=== PATIENT | female | born 1965 | race Hispanic/Latino ===

== ENCOUNTER → 2023-10-08 | Outpatient (CLI) | payer OTHER | END | disposition home or self-care (01) | LOC: RAH 13:10 | PROVIDERS: ATTEND Internal Medicine | DX: M41.85 Other forms of scoliosis, thoracolumbar region (principal); M41.9 Scoliosis, unspecified; M77.31 Calcaneal spur, right foot; M43.8X4 Other specified deforming dorsopathies, thoracic region; M25.774 Osteophyte, right foot | CPT/HCPCS: 72082; 73620 ==

== ENCOUNTER → 2023-10-10 | Outpatient (CLI) | payer OTHER | END | disposition home or self-care (01) | LOC: RAH 12:28 | PROVIDERS: ATTEND Internal Medicine | DX: Z13.820 Encounter for screening for osteoporosis (principal); M77.31 Calcaneal spur, right foot; M41.9 Scoliosis, unspecified; M85.88 Other specified disorders of bone density and structure, other site | CPT/HCPCS: 77080 ==

== ENCOUNTER → 2023-11-09 | Outpatient (CLI) | payer OTHER | END | disposition home or self-care (01) | LOC: OIH 14:03 | PROVIDERS: ATTEND Internal Medicine | DX: M54.12 Radiculopathy, cervical region (principal) | CPT/HCPCS: 72040 ==

== ENCOUNTER → 2024-08-20 | Outpatient (CLI) | payer OTHER | END | disposition home or self-care (01) | LOC: RAH 10:14 | PROVIDERS: ATTEND Physical Medicine & Rehabilitation | DX: M99.05 Segmental and somatic dysfunction of pelvic region (principal); M54.50 Low back pain, unspecified | CPT/HCPCS: 72114 ==

== ENCOUNTER → 2024-12-18 | Outpatient (CLI) | payer OTHER ==
--- NOTE | 2024-12-18 17:04 | HMCIMG ---
CHEST 2VWS HISTORY: Hypertension COMPARISON: None FINDINGS: Frontal and lateral projections of the chest were obtained. There are prominent interstitial markings with possible superimposed infiltrates. The heart is not enlarged. No evidence of aortic calcification is seen. Degenerative changes are seen of the thoracolumbar spine. IMPRESSION: 1. There are prominent interstitial markings.
== END | disposition home or self-care (01) ==
LOC: RAH 15:30
PROVIDERS: ATTEND Internal Medicine
DX: I11.0 Hypertensive heart disease with heart failure (principal); I50.9 Heart failure, unspecified; M47.815 Spondylosis without myelopathy or radiculopathy, thoracolumbar region
CPT/HCPCS: 71046

== ENCOUNTER → 2024-12-23 | Outpatient (CLI) | payer OTHER ==
--- NOTE | 2024-12-23 16:00 | HMCIMG ---
DEXA BONE DENSITY SURVEY REASON: POST-MENOPAUSAL COMPARISON: None TECHNIQUE: DEXA bone densitometry was performed in the lumbar spine and left hip. FINDINGS: Mean bone mass density in the spine is 0.847 g present with square, T score -1.8, consistent with osteopenia. Femoral neck T score is -1.3 also corresponding with osteopenia. IMPRESSION: 1. Osteopenia consistent with a moderate fracture risk.
--- NOTE | 2024-12-24 09:42 | HMCIMG ---
SCREENING MAMMOGRAM REASON: Annual Exam COMPARISON: 08/28/2023 TECHNIQUE: CC and MLO views of the bilateral breasts were performed.CAD was performed as well. FINDINGS: Parenchymal density: There are scattered areas of fibroglandular density. There is a well-circumscribed 1 cm nodule centrally in the right breast unchanged compared to multiple prior studies dating back to 2012. There are no new focal mass lesions. There are no pathologic appearing calcifications. There is no evidence of architectural distortion or skin thickening. IMPRESSION: 1. Stable mammogram. The patient was entered into a reminder system with a target due date for their next mammogram. BI-RADS CATEGORY 2: BENIGN FINDINGS Recommend monthly self breast exam as well as annual clinical examination. A negative x-ray should not delay biopsy if a dominant or clinically suspicious mass is present, since 8-10% of cancers are not identified by mammography. Dense breasts particularly, may obscure an underlying neoplasm. Some of these may be detected clinically and therefore, clinical examination is an essential part of breast evaluation.
== END | disposition home or self-care (01) ==
LOC: RAH 14:23
PROVIDERS: ATTEND Internal Medicine
DX: Z12.31 Encounter for screening mammogram for malignant neoplasm of breast (principal); R92.323 Mammographic fibroglandular density, bilateral breasts; N63.10 Unspecified lump in the right breast, unspecified quadrant; M85.89 Other specified disorders of bone density and structure, multiple sites; Z78.0 Asymptomatic menopausal state
CPT/HCPCS: 77067; 77080

== ENCOUNTER 2025-01-09 05:33 | Day surgery (SDC) | payer OTHER ==
--- NOTE | 2025-01-07 08:35 | EKG ---
[facility] Test Date: 2025-01-07 Test Time: 09:25:28 Pat Name: OPAL WREN Department: [facility] Room: Gender: F Brewmaster: [id number] : 1965 Requested By: PANCHO OLEARY Order Number: [id number] Reading MD: Hermila Ravi Measurements Intervals [place] Rate: 77 P: 56 [place]: 163 QRS: -19 QRSD: 89 T: 15 QT: 402 QTc: 456 Interpretive Statements Sinus rhythm No previous ECG available for comparison Electronically Signed On 01-07-2025 16:59:50 MANUFACTURING TEST TECHNICIAN by Hermila Ravi Please click the below link to view image of tracing.
[2025-01-07 09:29] VITALS: BP 168/76; PULSE 87; RESP 14; TEMP 97.3
[~2025-01-09] VITALS: Ht 160 cm; Wt 98.4 kg
[2025-01-09] VITALS (18 sets, daily range): BP systolic 102–139; BP diastolic 47–91; PULSE 80–91; RESP 14–20; TEMP 97.1–97.3
[2025-01-09] MEDS: EPINEPHrine PF 1MG (1:1,000) 1 MG/ML AMP ONE
[~2025-01-09 05:33] MED LIST: ALBUTEROL IH; ASCO500C18 PO; CYCL-309 PO; ERGO500093 PO; LATA2.5D14 OU; LOSA100T59 PO; MAGN400T40 PO; METO25TA6 PO; MONT-39 PO; NAPR-1194 PO; OMEP40CA21 PO; PHEN-615 PO; ROSUVASTATIN PO
[2025-01-09] MEDS ORDERED: LACTATED RINGERS 1000ML 1,000 ML IV ONE (06:38)
[2025-01-09] MEDS ORDERED: dexaMETHasone SOD PHOSPHATE 4 MG/ML 1ML VIAL ONE (07:01)
[2025-01-09] MEDS ORDERED: ketOROlac 30MG VIAL (30MG/ML) ONE ×2 (07:01→10:38)
[2025-01-09] MEDS ORDERED: LIDOCAINE PF 100MG/5ML (2%) SYRINGE 5ML ONE (07:01)
[2025-01-09] MEDS ORDERED: phenylEPHRINE HCL 10 MG/ML 1ML VIAL IV ONE (07:03)
[2025-01-09] MEDS ORDERED: GLYCOPYRROLATE 0.2 MG/ML 5 ML VIAL ONE (07:03)
[2025-01-09] MEDS ORDERED: NEOSTIGMINE METHYLSULFATE 1MG/ML IV ONE (07:03)
[2025-01-09] MEDS ORDERED: proPOFol 10 MG/ML 20ML VIAL IV ONE (07:03)
[2025-01-09] MEDS ORDERED: MIDAZOLAM HCL 1 MG/ML 2ML VIAL ONE (07:03)
[2025-01-09] MEDS ORDERED: FENTanyl CITRate PF 50 MCG/1 ML 2ML VIAL ONE ×2 (07:04→09:09)
[2025-01-09] MEDS ORDERED: ondanSETRON 4MG INJ ONE (07:04)
[2025-01-09] MEDS ORDERED: ROPivacaine 0.5% 5MG/ML 30ML ONE (07:04)
[2025-01-09] MEDS ORDERED: rocuRONium bROMide 10MG/1ML 5ML VL ONE (07:04)
[2025-01-09] MEDS ORDERED: HYDR-4060 PO (07:35)
[2025-01-09] MEDS ORDERED: CYCL-309 PO (07:35)
[2025-01-09] MEDS: ceFAZolin SODIUM 2 GM VIAL ONE (07:45)
[2025-01-09] MEDS: MEPERIDINE-PF 50 MG/ML SYG ONE (11:13)
--- NOTE | 2025-01-09 12:38 | NUR ---
Full and complete Discharge Instructions given to Patient and Family both verbally and in writing.. All questions answered. Voiced understanding to Surgical precautions and Follow Up. Neurovascularly intact to Right extremity. Sling properly intact. PIV removed with catheter tip intact. Denies c/o pain or discomfort. Ambulated to Bathroom where voided large amount. D/C'd W/C to POV with Family to Home.
--- NOTE | 2025-01-09 15:22 | OP ---
Operative Note: DATE OF PROCEDURE: 01/09/25 SURGEON: PANCHO OLEARY MD SUPPLIER QUALITY: Serge Baker ANESTHESIA: General and interscalene block ANESTHESIOLOGIST/CAMPUS CHAPLAIN: Johnny Eugene CRNA PREOPERATIVE DIAGNOSIS: Right shoulder biceps tendinitis, rotator cuff tear, subacromial impingement, acromioclavicular joint osteoarthritis POSTOPERATIVE DIAGNOSIS: Right shoulder biceps tendinitis, rotator cuff tear, subacromial impingement, acromioclavicular joint osteoarthritis PROCEDURE: Right shoulder arthroscopic labral debridement, [id number] rotator cuff repair of the subscapularis, subacromial decompression, distal clavicle excision ESTIMATED BLOOD LOSS: 10 cc FINDINGS: On insertion of the arthroscope, we noted the presence of diffuse synovitis. There was hyperemic appearing synovium over the long head of the biceps. There was degenerative fraying of the labrum. The biceps attachment to the labrum appeared intact. There is a small full-thickness tear of the supraspinatus adjacent to the long head of the biceps. The remainder of the rotator cuff appeared intact from the articular side. In the subacromial space, there was a large lateral acromial spur we noted there to be a delamination of the anterior portion of the supraspinatus with the majority of the tissue intact. There were spurs at the acromioclavicular joint as well. The subscapularis had a large midsubstance tear as well. INDICATIONS: 59-year-old female with a history of right shoulder pain. They were failing conservative management and found on MRI to have small full- thickness rotator cuff tear. Clinically the also had signs of subacromial impingement acromioclavicular joint osteoarthritis and biceps tendinitis on the right shoulder. After discussion of the risk, benefits, and alternatives, the patient voluntarily agreed to undergo the aforementioned procedure. DESCRIPTION OF PROCEDURE: Patient was properly identified in the preoperative holding area. Surgical site marking was verified and surgery consent reviewed. The patient was then taken to the operating room and placed in supine position on the OR table. After induction of general anesthesia, preoperative antibiotics were given, all bony prominences were well-padded as the patient was transitioned into beachchair position. The right upper extremity was then prepped and draped in usual sterile fashion. Surgical timeout was done verifying correct surgery, side, site, and location to be performed. We then began the procedure by using an 18-gauge spinal needle to inject the shoulder joint with normal saline to distend the joint capsule. A posterior lateral portal was established using 11 blade and we inserted our arthroscope through this portal. We established an anterior portal using needle localization under direct visualization and placed a working cannula through this portal. We then performed a diagnostic arthroscopy with the aforementioned findings. We then evaluated the degenerative tearing of the labrum. This was debrided using the a shaver device. Hypertrophic synovium was debrided from within the articular surface using the cautery device. Once we had cleared this tissue we were then able to visualize the insertion of the long head of the biceps that appeared healthy. Closer to the rotator interval there was some mild fraying of the long head of the biceps so we decided to leave this intact. We then repositioned the arthroscope in the anterior portal into the subacromial space. Here we began debriding the subacromial bursa and were able to identify minor delamination of the supraspinatus with the majority of the tendon appearing intact. The subscapularis however had a tear in the midsubstance of the tendon getting close to the musculotendinous junction. This tissue appeared to have a poor quality. We elected due try to perform a [id number] repair of this tissue using FiberTape in the scorpion suture Passer. We placed mattress sutures tied these together arthroscopically to approximate this portion of the rotator cuff. The extra suture was cut arthroscopically we then visualize the [id number] repair had provided good anterior coverage of the humeral head. The bur device was then inserted and used to perform an acromioplasty resecting a proximally 2-3 mm bone from the undersurface of the acromion. We also removed a proximally 8 mm of bone from the distal clavicle at the acromion clavicular joint. Additionally we removed the osteophytes were present off of the acromion of the acromioclavicular joint. We then removed as much of the arthroscopic fluid as possible and removed the arthroscopic instruments and camera. We expressed some the remaining fluid from the surrounding soft tissues. 3-0 nylon was then used to close the skin portals. Sterile soft dressing was applied. Patient was then placed into a shoulder immobilizer, awakened from anesthesia, and taken the recovery room in stable condition. PANCHO OLEARY MD Jan 09, 2025 15:22
== END 2025-01-09 12:39 | disposition home or self-care (01) ==
LOC: DAH 05:33
PROVIDERS: ATTEND Student in an Organized Health Care Education/Training Program
DX: M75.121 Complete rotator cuff tear or rupture of right shoulder, not specified as traumatic (principal); M75.21 Bicipital tendinitis, right shoulder; M75.41 Impingement syndrome of right shoulder; M19.011 Primary osteoarthritis, right shoulder; M65.911 Unspecified synovitis and tenosynovitis, right shoulder; I10 Essential (primary) hypertension; Z90.49 Acquired absence of other specified parts of digestive tract; Z90.710 Acquired absence of both cervix and uterus; Z82.49 Family history of ischemic heart disease and other diseases of the circulatory system; Z88.8 Allergy status to other drugs, medicaments and biological substances; Z79.899 Other long term (current) drug therapy; Z98.890 Other specified postprocedural states
CPT/HCPCS: 64415; 29827; 29824; 29826; 93005; J1100; A4663; J7030; J7120; J3010 ×2; J3490 ×2; J2003; J0171; J2250; J2704; J2405; J1885; J2710; J2175; J2795; J2371; J0690; A6223; C1713; A4215; A4223; A4222; A4221; A4450